=== PATIENT | female | born 1990 | race Caucasian/White ===

== ENCOUNTER 2019-07-01 14:03 | Outpatient (CLI) | payer OTHER, MEDICAID | END 2019-07-01 14:04 | disposition home or self-care (01) | LOC: LAB 14:03 | PROVIDERS: ATTEND Nurse Practitioner Obstetrics & Gynecology | DX: O20.0 Threatened abortion (principal) | CPT/HCPCS: 36415; 84702 ==

== ENCOUNTER 2019-07-02 08:56 | Emergency (ER) | payer MEDICAID, OTHER ==
[2019-07-02 09:07] VITALS: BP 142/98
[2019-07-02 09:22] LABS: BILIRUBIN,URINE NEGATIVE (NEGATIVE); GLUCOSE, URINE (UA) NEGATIVE (NEGATIVE); KETONES,URINE (UA) NEGATIVE (NEGATIVE); LEUKOCYTE ESTERASE, URINE NEGATIVE (NEGATIVE); NITRITE,URINE NEGATIVE (NEGATIVE); OCCULT BLOOD,URINE SMALL (NEGATIVE); PROTEIN,URINE NEGATIVE (NEGATIVE); UROBILINOGEN,URINE 0.2 (NORMAL) E.U./dL (NORMAL)
[2019-07-02 09:24] LABS: CLARITY,URINE CLEAR (CLEAR); HCG UR QUAL NEGATIVE
--- NOTE | 2019-07-02 09:26 | ED Physician Documentation ---
PD HPI FEMALE - Stated complaint Stated Complaint: FEMALE - Chief complaint Chief Complaint: Abd Pain - History obtained from History obtained from: Patient - History of Present Illness Timing - onset: Yesterday Timing - duration: Days (2) Timing - details: Gradual onset Pain level max: 6 Pain level max: 3 Associated symptoms: Vaginal pain (cramping pelvic pain), Vaginal bleeding Contributing factors: [employer] History: G (2), P (1) Recently seen: Clinic (OB yesterday for same, estimated 6 weeks EGA by LMP. HCG was 25 yesterday.) Review of Systems Ten Systems: 10 systems reviewed and negative Constitutional: denies: Fever, Chills Nose: denies: Rhinorrhea / runny nose, Congestion Throat: denies: Sore throat Cardiac: denies: Chest pain / pressure Respiratory: denies: Cough GI: denies: Nausea, Vomiting, Diarrhea Skin: denies: Rash Musculoskeletal: denies: Neck pain, Back pain Neurologic: denies: Headache PD PAST MEDICAL HISTORY - Past Medical History Past Medical History: No - Past Surgical History Past Surgical History: No - Allergies Allergies/Adverse Reactions: Allergies Allergy/AdvReac Type Severity Reaction Status Date / Time No Known Drug Allergies Allergy Verified 07/02/19 09:08 - Social History Does the pt smoke?: No Smoking Status: Never smoker Does the pt drink ETOH?: No Does the pt have substance abuse?: No PD ED PE NORMAL - Vitals Vital signs reviewed: Yes - General General: Alert and oriented X 3, No acute distress, Well developed/nourished - HEENT HEENT: Moist mucous membranes - Neck Neck: Supple, no meningeal sign - Cardiac Cardiac: RRR - Respiratory Respiratory: No respiratory distress, Clear bilaterally - Abdomen Abdomen: Soft, Non tender, Non distended - Female Female : Pt declined - Derm Derm: Warm and dry - Neuro Neuro: Alert and oriented X 3 - Psych Psych: Normal mood, Normal affect Results - Vitals Vitals: Vital Signs - 24 hr 07/02/19 09:03 Temperature 36.8 C Heart Rate 78 Respiratory 16 Rate Blood Pressure 142/98 H O2 Saturation 100 Oxygen O2 Source Room air - Labs Labs: Laboratory Tests 07/02/19 09:09 Urine Color YELLOW Urine Clarity CLEAR Urine pH 6.0 Ur Specific [place] 1.015 Urine Protein NEGATIVE Urine Glucose (UA) NEGATIVE Urine Ketones NEGATIVE Urine Occult Blood SMALL H Urine Nitrite NEGATIVE Urine Bilirubin NEGATIVE Urine Urobilinogen 0.2 (NORMAL) Ur Leukocyte Esterase NEGATIVE Urine RBC 0-5 Urine WBC 0-3 Ur Squamous Epith Cells FEW Squamous Urine Bacteria Few Ur Microscopic Review INDICATED Urine Culture Comments NOT INDICATED Urine HCG, Qual NEGATIVE PD MEDICAL DECISION MAKING - ED course Complexity details: considered differential, d/w patient ED course: 29-year-old female with what appears to be a miscarriage. Her hCG is only 24. She is estimated 6 weeks . Does not have pain and tenderness to suggest an ectopic . Saw OB yesterday and sees them again tomorrow. She is well-appearing, nontoxic. Normal vital signs. We will have her follow-up with OB for further care. Patient counseled regarding signs and symptoms for which I believe and urgent re-evaluation would be necessary. Patient with good understanding of and agreement to plan and is comfortable going home at this time This document was made in part using voice recognition software. While efforts are made to proofread this document, sound alike and grammatical errors may occur. Departure - Departure Disposition: 01 Home, Self Care Clinical Impression: Miscarriage Condition: Good Instructions: ED Miscarriage Completed Follow-Up: Mira Champagne ARNP [Primary Care Provider] - Lynnette Mcpherson CNM, ARNP [Provider Admit Priv/Credential] - Within 1 week Comments: Follow up with your doctor tomorrow for repeat evaluation. Return if you worsen. Discharge Date/Time: 07/02/19 09:34
[2019-07-02 09:38] LABS: BACTERIA,URINE Few /HPF (None Seen); RBC,URINE 0-5 /HPF (0-5); SQUAMOUS EPITHELIAL CELL,UR FEW Squamous (<= Few)
== END 2019-07-02 09:34 | disposition home or self-care (01) ==
LOC: ED 08:56
DX: O03.9 Complete or unspecified spontaneous abortion without complication (principal)
CPT/HCPCS: 81001; 81003; 81025; 87086; 99282; 99283